=== PATIENT | male | born 1955 | race Caucasian/White ===

== ENCOUNTER → 2019-12-29 | Outpatient (CLI) | payer BC ==
--- NOTE | 2019-12-29 15:49 | XR ---
EXAMINATION TYPE: XR chest 2V DATE OF EXAM: 12/29/2019 CLINICAL HISTORY: Cough for 2 weeks. History of COPD. TECHNIQUE: Frontal and lateral views of the chest are obtained. COMPARISON: Chest regressed 02/13/2015 FINDINGS: The lungs are hyperexpanded with flattening of the hemidiaphragms and interstitial coarsen ing. The cardiomediastinal silhouette is within normal limits for size. Pulmonary vasculature is norm al. There is no focal air space opacity, pleural effusion, or pneumothorax seen. The osseous structur es are intact. Cervical spine fusion hardware and completely visualized. Curvature of the visualized thoracolumbar spine. IMPRESSION: Emphysematous changes. No acute cardiopulmonary process.
== END | disposition home or self-care (01) ==
LOC: RADXRMAIN 13:36
PROVIDERS: ATTEND Internal Medicine
DX: J43.9 Emphysema, unspecified (principal)
CPT/HCPCS: 71046